=== PATIENT | male | born 1995 | race Two or more races ===

== ENCOUNTER 2022-05-21 00:27 | Emergency (ER) | payer OTHER ==
[~2022-05-21] VITALS: Ht 172.7 cm; Wt 71.2 kg
== END 2022-05-21 01:28 | disposition home or self-care (01) ==
LOC: ER 00:27
DX: L03.011 Cellulitis of right finger (principal); W54.0XXA Bitten by dog, initial encounter

== ENCOUNTER → 2022-10-25 | Emergency (ER) | payer OTHER ==
[~2022-10-25] VITALS: Ht 175.3 cm; Wt 72.6 kg
[~2022-10-25] MED LIST: DUI500 PO; MOBIC7.5 MG PO
== END | disposition home or self-care (01) ==
LOC: ER 22:08
DX: S80.11XA Contusion of right lower leg, initial encounter (principal); S81.811A Laceration without foreign body, right lower leg, initial encounter; X58.XXXA Exposure to other specified factors, initial encounter; Y93.9 Activity, unspecified; Y92.9 Unspecified place or not applicable; Y99.9 Unspecified external cause status